=== PATIENT | female | born 1990 | race African-American/Black ===

== ENCOUNTER 2022-01-23 12:54 | Emergency (ER) | payer SELFPAY ==
[~2022-01-23] VITALS: Ht 170.2 cm; Wt 56.8 kg
[2022-01-23 13:18] VITALS: BP 165/91
[2022-01-23] MEDS ORDERED: IBUP-1007 PO (13:35)
[2022-01-23] MEDS ORDERED: CHLO15MO2 PO (13:35)
[2022-01-23] MEDS ORDERED: AMOX1TAB11 PO (13:35)
--- NOTE | 2022-01-23 13:36 | PHYS DOC ---
Past Medical History Past Surgical History: Cholecystectomy Additional Past Surgical Histo: LEAP General Adult EDM: Chief Complaint: DENTAL PROBLEM HPI: HPI: Patient is a 31-year-old female presents to the emergency department complaining of a dental infection on her lower rear molar area. Patient reports she had a wisdom teeth extracted approximately 1 year ago when she lived in [place]. Patient reports she has had pain since then however has noticed increasing pain over the past 3 to 4 days now reporting a 10 out of 10 pain. Patient reports she seen a dentist today who told her they could do nothing for her because she has an infection and she needs to come to the emergency department to get that treated first. Patient reports she last took pain medication Aleve 1 tablet last night with minimal relief in pain. Patient denies allergies to medications. States she takes no prescription medications at home. States she is currently on her menstrual cycle. Patient denies numbness to her face or tongue. Review of Systems: Review of Systems: 14 body systems of review of systems have been reviewed. See HPI for pertinent positives and negative responses, otherwise all other systems are negative, nonpertinent or noncontributory. Constitutional: Negative except as outlined in HPI above. Skin: Negative except as outlined in HPI above. Eyes: Negative except as outlined in HPI above. HENT: Negative except as outlined in HPI above. Respiratory: Negative except as outlined in HPI above. Cardiovascular: Negative except as outlined in HPI above. GI: Negative except as outlined in HPI above. : Negative except as outlined in HPI above. Musculoskeletal: Negative except as outlined in HPI above. Integument: Negative except as outlined in HPI above. Neurologic: Negative except as outlined in HPI above. Endocrine: Negative except as outlined in HPI above. Lymphatic: Negative except as outlined in HPI above. Psychiatric: Negative except as outlined in HPI above. Heart Score: C/O Chest Pain: No Risk Factors: Risk Factors: DM, Current or recent (<one month) smoker, HTN, HLP, family history of CAD, obesity. Risk Scores: Score 0 - 3: 2.5% MACE over next 6 weeks - Discharge Home Score 4 - 6: 20.3% MACE over next 6 weeks - Admit for Clinical Observation Score 7 - 10: 72.7% MACE over next 6 weeks - Early Invasive Strategies Physical Exam: PE: Constitutional: Well developed, well nourished, no acute distress, non-toxic appearance. 31-year-old female in no apparent distress. HENT: Normocephalic, atraumatic. Oropharynx moist, pink, patient has poor dentition. Gums at left lower posterior aspect has mild swelling with scant purulent drainage. There is no tongue swelling or deviation, there is no drooling, no trismus, patient speaking in normal voice tones. Eyes: Conjunctiva normal, no discharge. Neck: Normal range of motion, no stridor. Cardiovascular: No cyanosis appreciated, distal cap refill less than 2 seconds. Lungs & Thorax: Patient is in no respiratory distress, no audible adventitious lung sounds appreciated. Abdomen: Nontender, no abnormalities noted. Skin: Warm, dry, no erythema, no rash. Back: No tenderness, no deformities. Extremities: No tenderness, no cyanosis, no clubbing, ROM intact, no edema. Neurologic: Alert and oriented X 3, normal motor function, normal sensory function, no focal deficits noted. Psychologic: Affect normal, judgement normal, mood normal. Current Patient Data: Vital Signs: Vital Signs Date Time Temp Pulse Resp B/P (MAP) Pulse Ox O2 Delivery O2 Flow Rate FiO2 01/23/22 13:18 98.5 97 18 165/91 (115) 97 Room Air 98.5 EKG: EKG: [] Radiology/Procedures: Radiology/Procedures: [] Course & Med Decision Making: Course & Med Decision Making Pertinent Labs and Imaging studies reviewed. (See chart for details) 31-year-old female, vital signs reviewed, presents emergency department concerning dental infection. Physical examination reveals a dental abscess. We will treat with Rx Augmentin twice daily 10-day regimen, Peridex swish and spit, ibuprofen for pain. Will give first dose of pain medication and antibiotic in the emergency department today prior to discharge. Discussed with patient strict follow-up with dentist, gave dental referrals, reviewed medications and side effects, return to ER precautions and concerns were reviewed with patient, patient gave verbal understanding of and is amenable to ED discharge planning. Discussed with the patient all findings and diagnostic testing as well as the need to follow-up with their primary care provider for further evaluation and treatment or return to the ED if any new or worsening symptoms. Strict return precautions were also discussed at length, the patient voiced understanding and agreement with the discharge planning. The patient was nontoxic in appearance, in no apparent distress, and hemodynamically stable at the time of disposition. Dragon Disclaimer: Dragjayson Disclaimer: This electronic medical record was generated, in whole or in part, using a voice recognition dictation system. Departure Departure Impression: Primary Impression: Dental abscess Disposition: HOME / SELF CARE / HOMELESS Condition: GOOD Referrals: LENY FRENCH (PCP) Patient Instructions: Dental Abscess Additional Instructions: You are seen today in the emergency department for an infection in your gums near where you had a tooth extracted a year ago. Please take medications as prescribed until completed. I have attached a list of area dentists for you to follow-up with, please see a dentist soon. Thank you for visiting our Emergency Department. It was a pleasure taking care of you today in the emergency department and we appreciate you trusting us with your care. If any additional problems come up don't hesitate to return to visit us. Please follow up with your primary care provider so they can plan additional care if needed and know about the problem that you had. If symptoms worsen come back to the Emergency Department. Any concerning symptoms that start such as chest pain, shortness of air, weakness or numbness on one side of the body, running high fevers or any other concerning symptoms return to the ER. Scripts Amoxicillin/Potassium Clav (AMOX TR-K CLV 875-125 MG TAB) 1 Each Tablet 1 TAB PO BID for Dental infection, #20 TAB 0 Refills Prov: BALDO RICHMOND APRN 01/23/22 Chlorhexidine Gluconate (PERIDEX) 15 Ml Mouthwash 15-30 ML PO TID for Dental infection for 8 Days, #473 ML 0 Refills Swish and spit 3 times a day. Prov: BALDO RICHMOND APRN 01/23/22 Ibuprofen (IBUPROFEN) 600 Mg Tablet 600 MG PO PRN Q6HRS PRN for INFLAMMATION, #30 TAB 0 Refills Prov: BALDO RICHMOND APRN 01/23/22 BALDO RICHMOND APRN Jan 23, 2022 13:36
[2022-01-23] MEDS ORDERED: HYDROcodone/APAP 5/325MG 1 TAB TABLET PO ONE (14:15)
[2022-01-23] MEDS ORDERED: IBUPROFEN 200 MG TABLET. PO ONE (14:15)
[2022-01-23] MEDS ORDERED: AMOXICILLIN/K CLAV 875/125MG TABLET. PO ONE (14:15)
== END 2022-01-23 13:59 | disposition home or self-care (01) ==
LOC: ER 12:54
DX: K04.7 Periapical abscess without sinus (principal)
CPT/HCPCS: 99284